=== PATIENT | male | born 1985 | race African-American/Black ===

== ENCOUNTER 2017-11-19 20:30 | Emergency (ER) | payer SELFPAY ==
[~2017-11-19] VITALS: Ht 180.3 cm; Wt 81.6 kg
--- NOTE | 2017-11-19 20:51 | NUR ---
DR BERTRAM FLOWERS MD AT BEDSIDE FOR MSE. PT PLACED ON MONITOR AND PULSE OX. EKG COMPLETED.
[2017-11-19] MEDS ORDERED: IV NORMAL SALINE 1000 ML BAG IV ONE (21:00)
--- NOTE | 2017-11-19 21:15 | NUR ---
XRAY AT BEDSIDE
[2017-11-19 21:18] LABS: BASOPHILS % (AUTO) 0.7 % (0.0-2.0); EOSINOPHILS # (AUTO) 0.1 K/uL (0.0-0.7); EOSINOPHILS % (AUTO) 2.2 % (0.0-7.0); HEMATOCRIT 39.6 % (36.7-47.1); HEMOGLOBIN 13.8 g/dL (12.5-16.3); LYMPHOCYTES # (AUTO) 2.2 K/uL (20.0-40.0); LYMPHOCYTES % (AUTO) 56.3 % (20.5-51.5); MEAN CORPUSCULAR HEMOGLOBIN 27.2 uug (23.8-33.4); MEAN CORPUSCULAR HGB CONC 35 g/dL (32.5-36.3); MONOCYTES # (AUTO) 0.3 K/uL (2.0-10.0); MONOCYTES % (AUTO) 7.9 % (0.0-11.0); NEUTROPHILS # (AUTO) 1.3 K/uL (1.8-8.9); NEUTROPHILS % (AUTO) 32.9 % (38.5-71.5); PLATELET COUNT (AUTO) 204 K/uL (152-348); RED BLOOD CELL COUNT(AUTO) 5.07 MIL/uL (4.06-5.63)
[2017-11-19 21:19] LABS: CREATININE 1.3 mg/dL (0.6-1.3); POTASSIUM 3.7 mmol/L (3.5-5.1)
[2017-11-19 21:25] LABS: BILIRUBIN,DIRECT 0.2 mg/dL (0.0-0.2); BILIRUBIN,TOTAL 0.9 mg/dL (0.2-1.0); TOTAL PROTEIN, SERUM 7.2 g/dL (6.4-8.2)
--- NOTE | 2017-11-19 21:55 | NUR ---
ORTHOSTATIC BP: SITTIN/82 HR 52 STANDING 172/79 HR 52
--- NOTE | 2017-11-19 22:04 | NUR ---
Patient discharged to home in stable conditon. Written and verbal after care instructions given. Patient verbalizes understanding of instructions. IV removed, w/ catheter intact. Pressure applied, no bleeding noted at site. Pt states he "feels much better" and is accompanied from ER by family members. No distress noted. Pt took all personal belongings.
[2017-11-19 22:07] VITALS: BP 164/80
== END 2017-11-19 22:08 | disposition home or self-care (01) ==
LOC: ER 20:30
DX: R55 Syncope and collapse (principal)
CPT/HCPCS: 36415; 70030-TC; 71045; 84443; 85025; 85730; 93005; A4663; J7030